=== PATIENT | female | born 1995 | race Hispanic/Latino ===

== ENCOUNTER 2017-12-16 14:52 | Outpatient (CLI) | payer OTHER, SELFPAY ==
--- NOTE | 2017-12-16 15:49 | ULT ---
LIMITED RIGHT BREAST ULTRASOUND: Date: 12-16-17 Provided Clinical History: Palpable abnormality right breast. FINDINGS: Limited sonographic interrogation was performed of the right breast in the region of palpable concern . The sonographic appearance of the breast parenchyma is unremarkable. IMPRESSION: No sonographic correlate for the reported palpable abnormality. Negative imaging findings should not preclude further evaluation of a clinically suspicious finding. The patient was referred back to her physician. POS: LUCILA
== END 2017-12-16 14:53 | disposition home or self-care (01) ==
LOC: BICULT 14:52
PROVIDERS: ATTEND Nurse Practitioner Women's Health
DX: N60.11 Diffuse cystic mastopathy of right breast (principal); N60.12 Diffuse cystic mastopathy of left breast

== ENCOUNTER 2018-02-15 16:02 | Emergency (ER) | payer MEDICAID, SELFPAY ==
[2018-02-15 17:07] LABS: #Basophils 0.1 thou/uL (0.0-0.2); #Eosinphils 0.1 thou/uL (0.0-0.7); #Lymphocytes 2.4 thou/uL (1.20-3.40); #Monocytes 0.4 thou/uL (0.11-0.59); #Neutrophils 6.1 thou/uL (1.40-6.50); %Basophils 0.9 % (0.0-1.0); %Eosinophils 1.1 % (0.0-10.0); %Lymphocytes 26.1 % (28.0-48.0); %Monocytes 4.8 % (0.0-4.0); Hemoglobin 13.2 g/dL (12.0-16.0); Mean Corpuscular HGB CONC 33.8 g/dL (32.0-36.0); Mean Corpuscular Hemoglobin 28.3 pg (25.0-35.0); Mean Corpuscular Volume 83.7 fL (78.0-98.0); Mean Platelet Volume 7.2 fL (7.4-10.4); Platelet Count 256 thou/uL (130-400); RBC Distribution Width 11.3 % (11.5-14.5); Red Blood Cell (RBC) Count 4.66 mill/uL (4.00-5.20); White Blood Cell (WBC) Count 9.1 thou/uL (4.8-10.8)
[2018-02-15 17:16] LABS: Bilirubin Negative (Negative); Blood, Urine Negative (Negative); Clarity CLOUDY (Clear); Glucose, Urine (Dipstick) Negative (Negative); Leukocyte Moderate (Negative); Nitrite Positive (Negative); Protein, Urine (Dipstick) Negative (Neg-Trace)
[2018-02-15 17:18] LABS: Bacteria/HPF 4+ HPF (None Seen); Pathc Cast-AUWi Flag 0.29 (0-2.49); Pregnancy Test - Urine (BHCG) Negative (Negative); Pregu Control Background? CLEAR/WHITE (CLR/WHITE); Pregu Control Bar Appear? YES (CONTROL BAR); Squamous Epithelial None Seen HPF (0-3)
[2018-02-15 17:20] LABS: ALT (SGPT) 11 U/L (8-55); AST (SGOT) 13 U/L (5-34); Albumin 4.5 g/dL (3.5-5.0); Alkaline Phosphatase 70 U/L (40-150); Anion Gap 11 mmol/L (10-20); BUN (Urea Nitrogen) 8 mg/dL (7.0-18.7); Bilirubin, Total 0.6 mg/dL (0.2-1.2); Calc. Creatinine Clearance 0 mL/min (70-130); Calcium 9.6 mg/dL (7.8-10.44); Carbon Dioxide 25 mmol/L (22-29); Chloride 105 mmol/L (98-107); Estimated GFR-MDRD Greater than 90; Globulin 3.2 g/dL (2.4-3.5); Glucose 99 mg/dL (70-105); Potassium 3.6 mmol/L (3.5-5.1); Protein, Total 7.7 g/dL (6.0-8.3); Sodium 137 mmol/L (136-145)
[2018-02-15 17:27] LABS: Hyaline Casts/LPF 0-3 HYALINE CAST LPF (0-3 Hyaline)
== END 2018-02-15 18:51 | disposition home or self-care (01) ==
LOC: ERS 16:02
DX: N39.0 Urinary tract infection, site not specified (principal); F17.200 Nicotine dependence, unspecified, uncomplicated
CPT/HCPCS: 36415; 80053; 81003; 81015; 81025; 85025; 99284

== ENCOUNTER 2018-03-13 14:20 | Outpatient (CLI) | payer MEDICAID ==
--- NOTE | 2018-03-13 15:32 | ULT ---
PELVIC ULTRASOUND: HISTORY: Pelvic pain. FINDINGS: Rela-time imaging of the pelvis was obtained both transabdominally as well as with an endovaginal pro be. The uterus measures 4.3 x 3.5 x 5.9 cm. Endometrium is in the 2 mm range. A small follicle is seen involving the left adnexa. The right ovary is normal in appearance. DOPPLER EVALUATION WITH SPECTRAL ANALYSIS: Normal flow is shown to the adnexa. IMPRESSION: Unremarkable pelvic ultrasound. POS: LUCILA
== END 2018-03-13 14:21 | disposition home or self-care (01) ==
LOC: BICULT 14:20
PROVIDERS: ATTEND Advanced Practice Midwife
DX: R10.2 Pelvic and perineal pain (principal)
CPT/HCPCS: 76856

== ENCOUNTER 2018-07-21 21:24 | Emergency (ER) | payer MEDICAID, SELFPAY ==
[2018-07-21 22:17] LABS: #Basophils 0.1 thou/uL (0.0-0.2); #Eosinphils 0.3 thou/uL (0.0-0.7); #Lymphocytes 3.5 thou/uL (1.20-3.40); #Monocytes 0.6 thou/uL (0.11-0.59); #Neutrophils 6.3 thou/uL (1.40-6.50); %Basophils 0.8 % (0.0-1.0); %Eosinophils 2.7 % (0.0-10.0); %Monocytes 5.9 % (0.0-4.0); %Neutrophils 58.5 % (31.0-61.0); Hemoglobin 13.2 g/dL (12.0-16.0); Mean Corpuscular HGB CONC 33.6 g/dL (32.0-36.0); Mean Corpuscular Hemoglobin 28.6 pg (25.0-35.0); Mean Platelet Volume 7.4 fL (7.4-10.4); Platelet Count 245 thou/uL (130-400); RBC Distribution Width 11.4 % (11.5-14.5); Red Blood Cell (RBC) Count 4.62 mill/uL (4.00-5.20); White Blood Cell (WBC) Count 10.8 thou/uL (4.8-10.8)
[2018-07-21 22:35] LABS: Bilirubin Negative (Negative); Blood, Urine Negative (Negative); Clarity CLOUDY (Clear); Glucose, Urine (Dipstick) Negative (Negative); Leukocyte Negative (Negative); Nitrite Negative (Negative); Protein, Urine (Dipstick) Negative (Neg-Trace); Specific Gravity, Urine 1.013 (1.002-1.036); Urobilinogen 0.2 mg/dL (0.2-1.0)
[2018-07-21 22:36] LABS: Pregnancy Test - Urine (BHCG) Negative (Negative); Pregu Control Background? CLEAR/WHITE (CLR/WHITE); Pregu Control Bar Appear? YES (CONTROL BAR); Specific Gravity 1.013 (1.002-1.036)
[2018-07-21 22:42] LABS: ALT (SGPT) 11 U/L (8-55); AST (SGOT) 12 U/L (5-34); Albumin 4.3 g/dL (3.5-5.0); Alkaline Phosphatase 66 U/L (40-150); Anion Gap 13 mmol/L (10-20); BUN (Urea Nitrogen) 10 mg/dL (7.0-18.7); Bilirubin, Total 0.3 mg/dL (0.2-1.2); Calc. Creatinine Clearance 0 mL/min (70-130); Calcium 10.1 mg/dL (7.8-10.44); Carbon Dioxide 27 mmol/L (22-29); Chloride 104 mmol/L (98-107); Estimated GFR-MDRD Greater than 90; Globulin 2.9 g/dL (2.4-3.5); Glucose 111 mg/dL (70-105); Lipase 12 U/L (8-78); Potassium 3.9 mmol/L (3.5-5.1); Protein, Total 7.2 g/dL (6.0-8.3); Sodium 140 mmol/L (136-145)
[2018-07-22 19:29] LABS: Chlamydia by PCR Not Detected (NotDetected); GC by PCR Not Detected (NotDetected)
== END 2018-07-21 23:40 | disposition home or self-care (01) ==
LOC: ERS 21:24
DX: N89.8 Other specified noninflammatory disorders of vagina (principal); F17.210 Nicotine dependence, cigarettes, uncomplicated
CPT/HCPCS: 36415; 80053; 81003; 81025; 83690; 85025; 87480; 87491; 87510; 87591; 87660; 99284

== ENCOUNTER 2018-10-04 02:16 | Emergency (ER) | payer SELFPAY | END 2018-10-04 02:34 | disposition home or self-care (01) | LOC: ERS 02:16 | DX: R19.8 Other specified symptoms and signs involving the digestive system and abdomen (principal); F17.200 Nicotine dependence, unspecified, uncomplicated | CPT/HCPCS: 99281 ==

== ENCOUNTER 2019-01-01 18:29 | Emergency (ER) | payer MEDICAID, SELFPAY ==
[2019-01-01 19:08] LABS: Bilirubin Negative (Negative); Blood, Urine Negative (Negative); Clarity Clear (Clear); Glucose, Urine (Dipstick) Normal (Negative); Leukocyte Negative Leu/uL (Negative); Nitrite Negative (Negative); Protein, Urine (Dipstick) Negative (Neg-Trace); Urobilinogen Normal mg/dL (Less than 2)
[2019-01-01 19:15] LABS: #Basophils 0.1 thou/uL (0.0-0.2); #Eosinphils 0.2 thou/uL (0.0-0.7); #Lymphocytes 2.9 thou/uL (1.20-3.40); #Monocytes 0.8 thou/uL (0.11-0.59); #Neutrophils 7.6 thou/uL (1.40-6.50); %Basophils 0.9 % (0.0-1.0); %Eosinophils 1.6 % (0.0-10.0); %Lymphocytes 24.9 % (21.0-51.0); %Monocytes 6.9 % (0.0-10.0); %Neutrophils 65.7 % (42.0-75.0); Hemoglobin 13.1 g/dL (12.0-16.0); Mean Corpuscular HGB CONC 33.5 g/dL (32.0-36.0); Mean Corpuscular Hemoglobin 28.4 pg (27.0-31.0); Mean Corpuscular Volume 84.8 fL (78.0-98.0); Mean Platelet Volume 6.9 fL (7.4-10.4); Platelet Count 296 thou/uL (130-400); RBC Distribution Width 11.8 % (11.5-14.5); Red Blood Cell (RBC) Count 4.62 mill/uL (4.20-5.40); White Blood Cell (WBC) Count 11.6 thou/uL (4.8-10.8)
--- NOTE | 2019-01-01 22:30 | ULT ---
Obstetric sonogram transabdominal and transvaginal imaging with duplex evaluation HISTORY: Early . Pelvic pain and bleeding. FINDINGS: Urinary bladder is decompressed. Uterus is retroverted and retroflexed. Physiologic amount of free fluid within the cul-de-sac. Gestational sac within the endometrial cavity contains a yolk sac and pole. Heart motion demons trated at 111 bpm. Measurements correlate with 6 weeks 1 day gestational age giving an estimated date of delivery of 08/26/2019. Each ovary has normal appearance and demonstrates good color and spectral Doppler flow. IMPRESSION: Single early intrauterine gestation. Estimated gestational age 6 weeks 1 day. No significant abnormalities are demonstrated.
[2019-01-04 14:48] LABS: Chlamydia by PCR Not Detected (NotDetected); GC by PCR Not Detected (NotDetected)
== END 2019-01-01 23:02 | disposition home or self-care (01) ==
LOC: ERS 18:29
DX: O20.9 Hemorrhage in early pregnancy, unspecified (principal); Z3A.01 Less than 8 weeks gestation of pregnancy
CPT/HCPCS: 36415; 76856; 81003; 84702; 85025; 86900; 86901; 87480; 87491; 87510; 87591; 87660

== ENCOUNTER 2019-08-20 12:54 | Emergency (ER) | payer OTHER ==
[2019-08-21 16:09] LABS: SARS-CoV-2 MS2 Positive; SARS-CoV-2 N Gene Negative; SARS-CoV-2 S Gene Negative; SARS-CoV-2 orf1ab Negative
== END 2019-08-20 13:15 | disposition home or self-care (01) ==
LOC: ERS 12:54
DX: Z20.828 Contact with and (suspected) exposure to other viral communicable diseases (principal)
CPT/HCPCS: 87635; 99283; U0003

== ENCOUNTER 2019-08-23 11:31 | Inpatient (IN) | payer OTHER ==
--- NOTE | 2019-08-23 11:51 | PDOC.LDHP ---
Labor and Delivery H&P Chief complaint: contractions HPI: Pt is a 23 yo at 39.3 wks who presents with a one day history of contractions. Contractions were noticeable on 08/22/19 presenting with discomfort once an hour. She woke up this am with painful contractions, 8/10, every 4-5 mins. She denies LOF but endorsed red/white discharge. She denies vaginal bleeding, VELAZQUEZ, vision changes, shortness of breath, chest pain, worsening LE edema, RUQ pain. Only complication during is anemia of requiring iron supplementation. Due date: 08/27/19 Dating criteria: last menstrual period, first trimester ultrasound Grav: 1 Para: 0 OB History Details: Anemia of Abnormal US findings: No Past Medical History: none Current medications: pre-missael vitamins, iron Previous surgical history: none Allergies/Adverse Reactions: Allergies Allergy/AdvReac Type Severity Reaction Status Date / Time No Known Allergies Allergy Unverified 08/23/19 11:59 Social history: none - Physical Exam Vital signs reviewed and normal: yes (123/68) General: NAD, breathing through contractions Heart: RRR Lungs: CTAB Abdomen: NTTP Extremeties: trace edema FHT: category 1, variability present [place] contractions every: 3-4 mins - Vaginal Exam cm dilated: 5 Effacement: 90% Station: -1 - OB Labs GBS: negative - Assessment L&D Assessment: term patient in labor - Plan Plan: admit to L&D -: Pt is a 23 yo at 39.3 wks, dated by 6.1 wk U/S, who presents in labor: # Term IUP /-1. - admit to L&D for labor - monitor FHT's - currently category 1 strip - cervical checks q2-3 hrs - pt unsure if she wants an epidural - Dr. Cheng notified - bedside ultrasound - R fundal placenta, cephalic presentation # GBS Negative # Anemia of - pending H/H - asymptomatic # COVID Negative on 08/20/19 - no recent contacts, asymptomatic Dispo: admit to L&D
[2019-08-23 11:58] VITALS: BMI 31.4
[2019-08-23] MEDS ORDERED: Docusate 100 MG CAP PO PRN (12:34)
[2019-08-23] MEDS ORDERED: hydrALAZINE 20 MG/ML VIAL SLOW IVP PRN ×2 (12:34→17:50)
[2019-08-23] MEDS ORDERED: Ondansetron PF 4 MG/2 ML Vial IVP PRN ×2 (12:34→17:50)
[2019-08-23] MEDS ORDERED: Carboprost 250 MCG/ML AMP IM PRN (12:34)
[2019-08-23] MEDS ORDERED: Butorphanol Tartrate 1 MG/ML VIAL SLOW IVP PRN (12:34)
[2019-08-23] MEDS ORDERED: Lidocaine 1% (PF) 30 ML VIAL SC PRN (12:34)
[2019-08-23] MEDS ORDERED: Misoprostol 200 MCG TAB PR PRN (12:34)
[2019-08-23] MEDS ORDERED: Ibuprofen 800 MG TAB PO PRN (12:34)
[2019-08-23] MEDS ORDERED: Methylergonovine 0.2 MG/ML VIAL IM PRN (12:34)
[2019-08-23] MEDS ORDERED: Promethazine HCl 25 MG/ML VIAL IM PRN ×2 (12:34→17:50)
[2019-08-23] MEDS ORDERED: Diphenoxylate HCl/Atropine Tablet PO PRN ×2 (12:34)
[2019-08-23] MEDS ORDERED: Lactated Ringer's 1,000 ML IV SCH (12:45)
[2019-08-23 13:05] LABS: Hemoglobin 10.9 g/dL (12.0-16.0); Mean Corpuscular HGB CONC 33.6 g/dL (32.0-36.0); Mean Corpuscular Hemoglobin 26.2 pg (27.0-31.0); Mean Corpuscular Volume 78.1 fL (78.0-98.0); Platelet Count 209 thou/uL (130-400); RBC Distribution Width 15.8 % (11.5-14.5); Red Blood Cell (RBC) Count 4.14 mill/uL (4.20-5.40); White Blood Cell (WBC) Count 11.2 thou/uL (4.8-10.8)
[2019-08-23 13:45] LABS: Syphilis Antibody Nonreactive (Nonreactive); Syphilis Antibody Index 0.03 S/CO (<1.00 Non-Reactive)
--- NOTE | 2019-08-23 14:32 | PDOC.LDPN ---
Labor & Delivery Progress Note - Subjective Subjective: painful contractions, vaginal pressure - Objective Vital signs reviewed and normal: yes General: breathing through contractions SVE: 100/+1 FHT: category 1, variability present AROM: clear fluid Plan: continue plan of care -: Pt is a 23 yo at 39.3 wks, dated by 6.1 wk U/S, who presents in labor: # Term IUP 100/+1. Category 1 strip. AROM on check. - no epidural placed, has had stadol x 1 - Dr. Cheng notified - bedside ultrasound - R fundal placenta, cephalic presentation # GBS Negative # Anemia of - 10.9/32.4 - asymptomatic # COVID Negative on 08/20/19 - no recent contacts, asymptomatic Dispo: admit to L&D
[2019-08-23 15:56] LABS: Hep B Surf Ag Non-Reactive S/CO (NonReactive)
[2019-08-23] MEDS: NS / Oxytocin 40 units/1000ml 1,000 ML IV PRN ×2 (15:56→16:59)
--- NOTE | 2019-08-23 16:11 | PDOC.OPDEL ---
OB Operative/Delivery Note Delivery Dr/Surgeon: Skylar Assist: n/a Pre-Delivery Diagnosis: active labor Procedure/Post Delivery Dx: spontaneous vaginal delivery Weeks gestation: 39 Anesthesia: local - Findings A Sex: male - 1 min: 9 - 5 min: 9 - Additional Findings/Plan Placenta delivered: spontaneous Repaired Obstetrical Laceration: 2nd degree Estimated blood loss: 300 Compilations/Other Findings: NC x1 body cord x 1 Post delivery plan: routine recovery
[2019-08-23] MEDS ORDERED: HYDROcodone/Acetaminophen 5/325 mg Tablet PO PRN (17:50)
[2019-08-23] MEDS ORDERED: NS / Oxytocin 40 units/1000ml 1,000 ML IV SCH (17:50)
[2019-08-23] MEDS ORDERED: Milk Of Magnesia 30 ML UDCUP PO PRN (17:50)
[2019-08-23] MEDS ORDERED: Adacel (T-DAP) 0.5 ML SYRINGE IM ONE (17:50)
[2019-08-23] MEDS ORDERED: Bisacodyl 10 MG SUPP PR PRN (17:50)
[2019-08-23] MEDS ORDERED: Lanolin Ointment 7 GM TUBE TOP PRN (17:50)
[2019-08-23] MEDS ORDERED: Benzocaine-Menthol 82.5 ML CAN TOP PRN (17:50)
[2019-08-23] MEDS ORDERED: Preparation H Ointment 28 GM TUBE PR PRN (17:50)
[2019-08-23] MEDS ORDERED: diphenhydrAMINE 25 MG CAP PO PRN (17:50)
[2019-08-23] MEDS: HYDROcodone/Acetaminophen 5/325 mg Tablet PO PRN (17:55)
[2019-08-23] MEDS: Ibuprofen 800 MG TAB PO SCH (22:53)
[2019-08-23] MEDS: Docusate Calcium (SURFAK) 240 MG CAP PO SCH (22:54)
[2019-08-23] MEDS: Ferrous Sulfate 325 MG TAB PO SCH (22:55)
[2019-08-24] MEDS ORDERED: Butorphanol Tartrate 1 MG/ML VIAL ONE (05:20)
[2019-08-24] MEDS: Ibuprofen 800 MG TAB PO SCH ×3 (06:13→21:19)
[2019-08-24 06:16] LABS: Hemoglobin 8.7 g/dL (12.0-16.0); Mean Corpuscular HGB CONC 34.2 g/dL (32.0-36.0); Mean Corpuscular Volume 78.9 fL (78.0-98.0); Mean Platelet Volume 8.4 fL (7.4-10.4); Platelet Count 174 thou/uL (130-400); RBC Distribution Width 15.8 % (11.5-14.5); Red Blood Cell (RBC) Count 3.24 mill/uL (4.20-5.40); White Blood Cell (WBC) Count 12.7 thou/uL (4.8-10.8)
--- NOTE | 2019-08-24 13:34 | PDOC.PP ---
Post Progress Note Post Day #: 1 PO intake tolerated: yes Flatus: yes Ambulation: yes Weight Weight 166 lb - Physical Examination General: NAD Respiratory: non-labored breathing Abdominal: no distention, appropriately TTP Neurological: no gross focal deficits Psychiatric: normal affect Result Diagrams: 08/24/19 05:55 Additional Labs: Post Labs Blood Type O POSITIVE 08/23/19 12:39 Hep Bs Antigen Non-Reactive S/CO (NonReactive) 08/23/19 12:39 - Assessment/Plan PPD1 s/p TSVD VSSAF Doing well, lochia < menses, pain controlled Rh pos RImm Cont PP care.
[2019-08-24] MEDS: Ferrous Sulfate 325 MG TAB PO SCH (17:52)
[2019-08-24] MEDS: Docusate Calcium (SURFAK) 240 MG CAP PO SCH (21:18)
[2019-08-25] MEDS: Ibuprofen 800 MG TAB PO SCH ×2 (05:10→13:35)
[2019-08-25 08:13] VITALS: BP 100/59; TEMP 97.7
[2019-08-25] MEDS: Prenatal Vitamin 1 TAB PO SCH ×2 (09:18→09:20)
[2019-08-25] MEDS: Docusate Calcium (SURFAK) 240 MG CAP PO SCH ×2 (09:19→09:20)
[2019-08-25] MEDS: Ferrous Sulfate 325 MG TAB PO SCH ×3 (09:19→17:55)
[2019-08-25] MEDS: HYDROcodone/Acetaminophen 5/325 mg Tablet PO PRN (11:13)
--- NOTE | 2019-08-25 13:27 | PDOC.PP ---
Post Progress Note Post Day #: 2 PO intake tolerated: yes Flatus: yes Ambulation: yes Vital Signs (12 hours) Temp Pulse Resp BP Pulse Ox 08/25/19 07:40 97.7 F 65 18 100/59 L 98 Weight Weight 166 lb - Physical Examination General: NAD Respiratory: non-labored breathing Abdominal: no distention, appropriately TTP Fundus firm & at: umb Skin: no rash Neurological: no gross focal deficits Psychiatric: normal affect Result Diagrams: 08/24/19 05:55 Additional Labs: Post Labs Blood Type O POSITIVE 08/23/19 12:39 Hep Bs Antigen Non-Reactive S/CO (NonReactive) 08/23/19 12:39 - Assessment/Plan PPD2 s/p TSVD VSSAF Doing well no issues Acute blood loss anemia, hgb 8.7, no s/sx anemia, cont iron and pnv. Rh pos RImm DC home FU 6w
== END 2019-08-25 18:50 | disposition home or self-care (01) | DRG 806 ==
LOC: L&D/OP 11:31 → L&D 12:35 → 3SW 08-24 17:33
PROVIDERS: ADMIT Student in an Organized Health Care Education/Training Program; ATTEND Student in an Organized Health Care Education/Training Program
PROC: 10E0XZZ Delivery of Products of Conception, External Approach (ICD-10-PCS; principal; 2019-08-23)
PROC: 0KQM0ZZ Repair Perineum Muscle, Open Approach (ICD-10-PCS; 2019-08-23)
PROC: 10907ZC Drainage of Amniotic Fluid, Therapeutic from Products of Conception, Via Natural or Artificial Opening (ICD-10-PCS; 2019-08-23)
DX: O69.81X0 Labor and delivery complicated by cord around neck, without compression, not applicable or unspecified (principal); D62 Acute posthemorrhagic anemia; Z37.0 Single live birth; O99.02 Anemia complicating childbirth; O70.1 Second degree perineal laceration during delivery; Z3A.39 39 weeks gestation of pregnancy
CPT/HCPCS: 36415; 85027; 86780; 86850; 86900; 86901; 87340; 99285; J0595; J2001

== ENCOUNTER 2020-05-13 20:24 | Emergency (ER) | payer OTHER ==
[2020-05-13 21:01] LABS: Bacteria/HPF 4+ HPF (None Seen); Clarity Clear (Clear); RBC/HPF 0-3 HPF (0-3); Squamous Epithelial 0-3 HPF (0-3); WBC/HPF Greater than 50 HPF (0-3); pH, Urine 6.5 (5.0-9.0)
[2020-05-13 21:03] LABS: Leukocyte Unable to Interpret Leu/uL (Negative)
[2020-05-13 21:04] LABS: Bilirubin Unable to Interpret (Negative); Blood, Urine Unable to Interpret (Negative); Glucose, Urine (Dipstick) Unable to Interpret mg/dL (Negative); Ketone, Urine Unable to Interpret mg/dL (Negative); Nitrite Unable to Interpret (Negative); Protein, Urine (Dipstick) Unable to Interpret mg/dL (Neg-Trace); Urobilinogen UNABLE TO INTERPRET mg/dL (Less than 2)
[2020-05-15 18:46] LABS: Chlamydia by PCR Not Detected (NotDetected); GC by PCR Not Detected (NotDetected)
== END 2020-05-13 21:54 | disposition home or self-care (01) ==
LOC: ERS 20:24
DX: N89.8 Other specified noninflammatory disorders of vagina (principal); R30.0 Dysuria
CPT/HCPCS: 81003; 81015; 87480; 87491; 87510; 87591; 87660; 99283

== ENCOUNTER 2021-04-04 14:56 | Outpatient (CLI) | payer OTHER | END 2021-04-04 14:57 | disposition home or self-care (01) | LOC: BICULT 14:56 | PROVIDERS: ATTEND Physician Assistant | DX: N63.10 Unspecified lump in the right breast, unspecified quadrant (principal) ==

== ENCOUNTER 2022-04-06 09:34 | Emergency (ER) | payer OTHER ==
[2022-04-06 10:08] LABS: #Basophils 0.1 thou/uL (0.0-0.2); #Eosinphils 0.1 thou/uL (0.0-0.7); #Lymphocytes 1.6 thou/uL (1.20-3.40); #Monocytes 0.4 thou/uL (0.11-0.59); #Neutrophils 5.8 thou/uL (1.40-6.50); %Basophils 0.9 % (0.0-1.0); %Eosinophils 1.2 % (0.0-10.0); %Lymphocytes 20.4 % (21.0-51.0); %Neutrophils 72.6 % (42.0-75.0); Hemoglobin 12.7 g/dL (12.0-16.0); Mean Corpuscular HGB CONC 34.3 g/dL (32.0-36.0); Mean Corpuscular Hemoglobin 29.5 pg (27.0-31.0); Mean Platelet Volume 7.1 fL (7.4-10.4); Platelet Count 227 10x3/uL (130-400); RBC Distribution Width 11.7 % (11.5-14.5); Red Blood Cell (RBC) Count 4.29 mill/uL (4.20-5.40)
[2022-04-06 10:17] LABS: BHCG - Serum POSITIVE (NEGATIVE); Pregs Control Background? CLEAR/WHITE (CLR/WHITE); Pregs Control Bar Appear? YES (CONTROL BAR)
[2022-04-06 10:31] LABS: ALT (SGPT) Less than 7 U/L (8-55); AST (SGOT) 10 U/L (5-34); Albumin 3.7 g/dL (3.5-5.0); Alkaline Phosphatase 52 U/L (40-110); Anion Gap 13 mmol/L (10-20); BUN (Urea Nitrogen) 5 mg/dL (7.0-18.7); Bilirubin, Total 0.3 mg/dL (0.2-1.2); Calc. Creatinine Clearance 0 mL/min (70-130); Calcium 9.1 mg/dL (7.8-10.44); Carbon Dioxide 21 mmol/L (22-29); Chloride 105 mmol/L (98-107); Estimated GFR 132; Glucose 95 mg/dL (70-105); Potassium 3.9 mmol/L (3.5-5.1); Protein, Total 6.7 g/dL (6.0-8.3); Sodium 135 mmol/L (136-145)
[2022-04-06] MEDS ORDERED: Metoclopramide HCl 10 MG/2 ML VIAL ONE (11:20)
[2022-04-06 11:30] LABS: Bilirubin Negative (Negative); Blood, Urine Negative (Negative); Clarity Clear (Clear); Glucose, Urine (Dipstick) Normal (Negative); Ketone, Urine Negative (Negative); Leukocyte Negative Leu/uL (Negative); Nitrite Negative (Negative); Protein, Urine (Dipstick) Negative (Neg-Trace); Specific Gravity, Urine 1.021 (1.002-1.036); Urobilinogen Normal mg/dL (Less than 2); pH, Urine 6.5 (5.0-9.0)
[2022-04-06] MEDS ORDERED: Acetaminophen 500 MG TAB ONE ×2 (12:50→12:53)
[2022-04-06 21:35] LABS: Chlamydia by PCR Not Detected (NotDetected); GC by PCR Not Detected (NotDetected)
== END 2022-04-06 12:59 | disposition home or self-care (01) ==
LOC: ERS 09:34
DX: O99.891 Other specified diseases and conditions complicating pregnancy (principal); R10.2 Pelvic and perineal pain; Z3A.11 11 weeks gestation of pregnancy
CPT/HCPCS: 36415; 76801; 80053; 81003; 84702; 84703; 85025; 87086; 87480; 87491; 87510; 87591; 87660; 96365; J2765

== ENCOUNTER 2022-12-30 22:30 | Emergency (ER) | payer OTHER | END 2022-12-30 22:57 | disposition left against medical advice (07) | LOC: ERS 22:30 | DX: Z53.21 Procedure and treatment not carried out due to patient leaving prior to being seen by health care provider (principal) ==

== ENCOUNTER 2023-01-31 22:38 | Emergency (ER) | payer OTHER ==
[~2023-01-31 22:38] MED LIST: Iopamidol-370 76% 500 ML MDV (1 ML CHARGE) ONE
[2023-01-31 23:18] LABS: #Eosinphils 0.2 thou/uL (0.0-0.7); #Monocytes 0.5 thou/uL (0.11-0.59); %Basophils 0.3 % (0.0-1.0); %Eosinophils 2.2 % (0.0-10.0); %Lymphocytes 23.8 % (21.0-51.0); %Monocytes 6.5 % (0.0-10.0); %Neutrophils 67.1 % (42.0-75.0); Hematocrit 42.2 % (36.0-47.0); Hemoglobin 14.2 g/dL (12.0-16.0); Mean Corpuscular HGB CONC 33.6 g/dL (32.0-36.0); Mean Corpuscular Hemoglobin 28.7 pg (27.0-31.0); Mean Corpuscular Volume 85.3 fl (78.0-98.0); Mean Platelet Volume 9.4 fL (7.4-10.4); Platelet Count 243 10x3/uL (130-400); RBC Distribution Width 13.2 % (11.5-14.5); Red Blood Cell (RBC) Count 4.95 mill/uL (4.20-5.40); White Blood Cell (WBC) Count 7.4 10x3/uL (4.8-10.8)
[2023-01-31 23:22] LABS: BHCG - Serum Negative (NEGATIVE); Pregs Control Background? CLEAR/WHITE (CLR/WHITE); Pregs Control Bar Appear? YES (CONTROL BAR)
[2023-01-31] MEDS ORDERED: Morphine 4 MG/ML VIAL ONE (23:26)
[2023-01-31] MEDS ORDERED: Ondansetron PF 4 MG/2 ML Vial ONE (23:26)
[2023-01-31 23:40] LABS: ALT (SGPT) 19 U/L (8-55); AST (SGOT) 14 U/L (5-34); Albumin 4.5 g/dL (3.5-5.0); Alkaline Phosphatase 81 U/L (40-110); Anion Gap 13 mmol/L (10-20); BUN (Urea Nitrogen) 9 mg/dL (7.0-18.7); Bilirubin, Total 0.8 mg/dL (0.2-1.2); Calc. Creatinine Clearance 0 mL/min (70-130); Calcium 9.6 mg/dL (7.8-10.44); Carbon Dioxide 22 mmol/L (22-29); Chloride 106 mmol/L (98-107); Estimated GFR 124; Globulin 3.2 g/dL (2.4-3.5); Glucose 101 mg/dL (70-105); Lipase 13 U/L (8-78); Potassium 3.6 mmol/L (3.5-5.1); Protein, Total 7.7 g/dL (6.0-8.3); Sodium 137 mmol/L (136-145)
[2023-01-31 23:54] LABS: Bacteria/HPF None Seen HPF (None Seen); Bilirubin Negative (Negative); Blood, Urine Negative (Negative); CAUTI Indications for Culture Pelvic or flank pain; Clarity Clear (Clear); Glucose, Urine (Dipstick) Normal (Negative); Ketone, Urine Negative (Negative); Leukocyte Negative Leu/uL (Negative); Nitrite Negative (Negative); Protein, Urine (Dipstick) Negative (Neg-Trace); RBC/HPF 0-3 HPF (0-3); Specific Gravity, Urine 1.009 (1.002-1.036); Squamous Epithelial None Seen HPF (0-3); Urobilinogen Normal mg/dL (Less than 2); WBC/HPF 0-3 HPF (0-3); pH, Urine 6.5 (5.0-9.0)
[2023-02-01 00:38] LABS: Urine Culture Reflex No No
[2023-02-01] MEDS ORDERED: Ketorolac Tromethamine 30 MG/ML VIAL ONE (02:10)
[2023-02-01] MEDS ORDERED: Dicyclomine 20 MG TAB ONE (02:43)
[2023-02-02 02:15] LABS: GC by PCR, Vaginal Swab Not Detected (NotDetected)
== END 2023-02-01 03:10 | disposition home or self-care (01) ==
LOC: ERS 22:38
DX: K52.9 Noninfective gastroenteritis and colitis, unspecified (principal); R10.2 Pelvic and perineal pain
CPT/HCPCS: 36415; 74177; 80053; 81001; 83690; 84703; 85025; 87480; 87510; 87591; 87660; 96361; 96374; 96375; J1885; J2270; J2405; Q9967